=== PATIENT | female | born 1965 | race Caucasian/White ===

== ENCOUNTER → 2025-03-17 15:16 | Outpatient (REF) | payer OTHER, SELFPAY | LOC: RAD 15:16 | PROVIDERS: ATTENDING PHYSICIAN Family Medicine | DX: N95.0 Postmenopausal bleeding (principal) | CPT/HCPCS: 76830; 76856 ==

== ENCOUNTER 2025-08-11 19:45 | Inpatient (IN) | payer OTHER, SELFPAY ==
[2025-08-11 10:17] VITALS: BP 183/97
[2025-08-11 11:29] VITALS: BP 175/91
[2025-08-11 11:32] VITALS: BMI 22.7
[2025-08-11 11:44] LABS: Hematocrit 29.9 % (37.0-47.0); Hemoglobin 9.6 g/dL (12.0-16.0); Mean Corp Hgb Conc. 32.1 g/dL (33.0-37.0); Mean Corpuscular Volume 84.2 fL (81.0-99.0); Nucleated Red Blood Cells % 0 %; Platelet Count 419 10^3/uL (130-400); Red Cell Dist. Width 13.6 % (11.5-14.5)
--- NOTE | 2025-08-11 11:54 | ED.GENMED ---
History of Present Illness
<DEBORAH Campbell - Last Filed: 08/11/25 15:56>
General
Chief Complaint: Abdominal Pain
Source: patient
Exam Limitations: none
Time Seen by Provider: 08/11/25 11:20
Nursing documentation reviewed up to this point in time: agreed with
History of Present Illness
History of Present Illness:
Patient is a 60-year-old female who presents to the ER for evaluation. Patient is status post robotic partial hysterectomy on Thursday 4 days ago at [facility]. Since then she has developed increasing abdominal pain worse in the right upper
quadrant. She is mildly nauseous. She did move her bowels this morning. She denies any urinary frequency or urgency. Denies any fever or chills.
Past History
<DEBORAH Campbell - Last Filed: 08/11/25 15:56>
Past History
ED Past Medical History: GERD, HTN, Psychiatric (Depression) and Other (Chronic back pain)
ED Past Surgical History: Orthopedic
Social History
Tobacco: Non-smoker
Phy Exam
<DEBORAH Campbell - Last Filed: 08/11/25 15:56>
General Physical Exam
General Presentation: no apparent distress
General age: appears stated age
General Skin: warm and dry
General Habitus: normal
General Mental: alert
General Hydration: appears well hydrated
Gastrointestinal Exam
Gastrointestinal Exam: soft and other (+ Laparoscopic surgical sites intact with no drainage or redness; tender throughout )
Neurological Exam
Neurological Exam: alert and oriented x3
Course
<DEBORAH Campbell - Last Filed: 08/11/25 15:56>
Orders/Labs/Results
Orders:
Orders
08/11/25 11:33
Electrocardiogram (*1) Urgent
Reason for Study: Abdominal Pain
EKG- Treatment ONCE
08/11/25 11:34
Complete Blood Count/With Diff Urgent
Comprehensive Metabolic Panel Urgent
Lipase Urgent
08/11/25 12:00
CT Abd/pel W Iv And Oral Contr Urgent
Comment:
Reason For Exam: ruq pain s/p robotic hysterectomy
Iohexol [Omnipaque] See Protocol PO NOW STA
08/11/25 12:01
0.9% Sodium Chloride 1000 ml [Nss] 1,000 ml IV BOLUS
Morphine Sulfate 2 mg IV NOW STA
Ondansetron Injectable [Zofran] 4 mg IV NOW STA
08/11/25 16:12
US Abdomen Limited Urgent
Comment: GB, biliary tree ONLY
Reason For Exam: RUQ pain, abnormal CT
08/11/25 18:16
Piperacillin/Tazo 3.375 Gram [Zosyn] 3.375 gram in 50 ml IV NOW
08/11/25 18:18
Morphine Sulfate 4 mg IV NOW STA
08/11/25 19:28
Admit/Transfer Patient As Directed
Co-Sign Provider:
Level of Care: Inpatient admission
Assign to:: Medical/Surgical
Physician / Group: López Lovett
Diagnosis: cholecystitis
Reason for Hospitalization: cholecystitis
Expected length of stay greater than two midnights?: Yes
ELOS- Estimated Length of Stay in days: 2
I certify the patient meets the requirements for IP care: Yes
Code Status As Directed
Resuscitation Status: Full Code
08/11/25 19:34
PRN Pain Medication Management As Directed
May give lesser potent ordered pain med per pt: Yes
preference::
Protocol:: Medication orders for pain may be administered in a
manner that supports deferring to patient preference
when the pt is:
- Requesting an ordered lesser potent pain medication.
Least to most potent pain medications are defined
as: acetaminophen < NSAID < tramadol < opioids
(morphine, oxycodone, hydromorphone).
- Requesting a lesser dose of the same medication IF
ORDERED.
- Requesting a less intrusive route of administration
if both routes are prescribed by the provider (PO <
IV).
08/11/25 22:39
0.9% Sodium Chloride 1000 ml [Nss] 1,000 ml IV 125 mls/hr
HYDROmorphone [Dilaudid] 0.25 mg IV Q4HPRN PRN
HYDROmorphone [Dilaudid] 0.5 mg IV Q4HPRN PRN
Ondansetron Injectable [Zofran] 4 mg IV Q6HPRN PRN
08/11/25 22:39
Activity As Directed
Activity Level: As Tolerated
Pneumatic Compression Sleeves As Directed
Type: Knee high
Vital Signs As Directed
Frequency: Per unit guidelines
DX Deep Vein Thrombosis Video Routine
08/12/25 Breakfast
NPO
Allow oral meds: No
Allow clear liquids: No
Complete Blood Count/With Diff IN AM
Comprehensive Metabolic Panel IN AM
Abnormal Lab Results
08/11/25
11:34
WBC 12.5 H 10^3/uL
(4.8-10.8)
RBC 3.55 L 10^6/uL
(4.20-5.40)
Hgb 9.6 L g/dL
(12.0-16.0)
Hct 29.9 L %
(37.0-47.0)
MCHC 32.1 L g/dL
(33.0-37.0)
Plt Count 419 H 10^3/uL
(130-400)
Abs Immat Gran (auto) 0.1 H 10^3/uL
(0-0.05)
Absolute Neuts (auto) 9.8 H 10^3/uL
(1.4-6.5)
Immature Gran % 0.7 H %
(0-0.5)
Neutrophils % 77.9 H %
(42.2-75.2)
Lymphocytes % 16.0 L %
(20.5-51.1)
Chloride 108 H mmol/L
(98-107)
BUN 6 L mg/dl
(7-17)
Creatinine 0.5 L mg/dL
(0.6-1.0)
AST 13 L U/L
(14-36)
Total Protein 5.5 L g/dl
(6.3-8.2)
Albumin 3.3 L g/dl
(3.5-5.0)
08/11/25 11:34
08/11/25 11:34
Vital Signs
Initial and Last Documented VS:
Initial Vital Signs
Temp Pulse Resp BP Pulse Ox
98.2 F 59 20 183/97 100
08/11/25 10:17 08/11/25 10:17 08/11/25 10:17 08/11/25 10:17 08/11/25 10:17
Last Documented Vital Signs
Temp Pulse Resp BP Pulse Ox
98.2 F 84 20 171/83 100
08/11/25 10:17 08/11/25 18:17 08/11/25 10:17 08/11/25 18:17 08/11/25 11:56
<Shaun Carrasco PA-C - Last Filed: 08/11/25 22:40>
Orders/Labs/Results
Orders:
Orders
08/11/25 11:33
Electrocardiogram (*1) Urgent
Reason for Study: Abdominal Pain
EKG- Treatment ONCE
08/11/25 11:34
Complete Blood Count/With Diff Urgent
Comprehensive Metabolic Panel Urgent
Lipase Urgent
08/11/25 12:00
CT Abd/pel W Iv And Oral Contr Urgent
Comment:
Reason For Exam: ruq pain s/p robotic hysterectomy
Iohexol [Omnipaque] See Protocol PO NOW STA
08/11/25 12:01
0.9% Sodium Chloride 1000 ml [Nss] 1,000 ml IV BOLUS
Morphine Sulfate 2 mg IV NOW STA
Ondansetron Injectable [Zofran] 4 mg IV NOW STA
08/11/25 16:12
US Abdomen Limited Urgent
Comment: GB, biliary tree ONLY
Reason For Exam: RUQ pain, abnormal CT
08/11/25 18:16
Piperacillin/Tazo 3.375 Gram [Zosyn] 3.375 gram in 50 ml IV NOW
08/11/25 18:18
Morphine Sulfate 4 mg IV NOW STA
08/11/25 19:28
Admit/Transfer Patient As Directed
Co-Sign Provider:
Level of Care: Inpatient admission
Assign to:: Medical/Surgical
Physician / Group: López Lovett
Diagnosis: cholecystitis
Reason for Hospitalization: cholecystitis
Expected length of stay greater than two midnights?: Yes
ELOS- Estimated Length of Stay in days: 2
I certify the patient meets the requirements for IP care: Yes
Code Status As Directed
Resuscitation Status: Full Code
08/11/25 19:34
PRN Pain Medication Management As Directed
May give lesser potent ordered pain med per pt: Yes
preference::
Protocol:: Medication orders for pain may be administered in a
manner that supports deferring to patient preference
when the pt is:
- Requesting an ordered lesser potent pain medication.
Least to most potent pain medications are defined
as: acetaminophen < NSAID < tramadol < opioids
(morphine, oxycodone, hydromorphone).
- Requesting a lesser dose of the same medication IF
ORDERED.
- Requesting a less intrusive route of administration
if both routes are prescribed by the provider (PO <
IV).
08/11/25 22:39
0.9% Sodium Chloride 1000 ml [Nss] 1,000 ml IV 125 mls/hr
HYDROmorphone [Dilaudid] 0.25 mg IV Q4HPRN PRN
HYDROmorphone [Dilaudid] 0.5 mg IV Q4HPRN PRN
Ondansetron Injectable [Zofran] 4 mg IV Q6HPRN PRN
08/11/25 22:39
Activity As Directed
Activity Level: As Tolerated
Pneumatic Compression Sleeves As Directed
Type: Knee high
Vital Signs As Directed
Frequency: Per unit guidelines
DX Deep Vein Thrombosis Video Routine
08/12/25 Breakfast
NPO
Allow oral meds: No
Allow clear liquids: No
Complete Blood Count/With Diff IN AM
Comprehensive Metabolic Panel IN AM
Abnormal Lab Results
08/11/25
11:34
WBC 12.5 H 10^3/uL
(4.8-10.8)
RBC 3.55 L 10^6/uL
(4.20-5.40)
Hgb 9.6 L g/dL
(12.0-16.0)
Hct 29.9 L %
(37.0-47.0)
MCHC 32.1 L g/dL
(33.0-37.0)
Plt Count 419 H 10^3/uL
(130-400)
Abs Immat Gran (auto) 0.1 H 10^3/uL
(0-0.05)
Absolute Neuts (auto) 9.8 H 10^3/uL
(1.4-6.5)
Immature Gran % 0.7 H %
(0-0.5)
Neutrophils % 77.9 H %
(42.2-75.2)
Lymphocytes % 16.0 L %
(20.5-51.1)
Chloride 108 H mmol/L
(98-107)
BUN 6 L mg/dl
(7-17)
Creatinine 0.5 L mg/dL
(0.6-1.0)
AST 13 L U/L
(14-36)
Total Protein 5.5 L g/dl
(6.3-8.2)
Albumin 3.3 L g/dl
(3.5-5.0)
08/11/25 11:34
08/11/25 11:34
Vital Signs
Initial and Last Documented VS:
Initial Vital Signs
Temp Pulse Resp BP Pulse Ox
98.2 F 59 20 183/97 100
08/11/25 10:17 08/11/25 10:17 08/11/25 10:17 08/11/25 10:17 08/11/25 10:17
Last Documented Vital Signs
Temp Pulse Resp BP Pulse Ox
98.2 F 84 20 171/83 100
08/11/25 10:17 08/11/25 18:17 08/11/25 10:17 08/11/25 18:17 08/11/25 11:56
Katielt;Catracho Mejia DO - Last Filed: 08/11/25 18:34>
Orders/Labs/Results
Orders:
Orders
08/11/25 11:33
Electrocardiogram (*1) Urgent
Reason for Study: Abdominal Pain
EKG- Treatment ONCE
08/11/25 11:34
Complete Blood Count/With Diff Urgent
Comprehensive Metabolic Panel Urgent
Lipase Urgent
08/11/25 12:00
CT Abd/pel W Iv And Oral Contr Urgent
Comment:
Reason For Exam: ruq pain s/p robotic hysterectomy
Iohexol [Omnipaque] See Protocol PO NOW STA
08/11/25 12:01
0.9% Sodium Chloride 1000 ml [Nss] 1,000 ml IV BOLUS
Morphine Sulfate 2 mg IV NOW STA
Ondansetron Injectable [Zofran] 4 mg IV NOW STA
08/11/25 16:12
US Abdomen Limited Urgent
Comment: GB, biliary tree ONLY
Reason For Exam: RUQ pain, abnormal CT
08/11/25 18:16
Piperacillin/Tazo 3.375 Gram [Zosyn] 3.375 gram in 50 ml IV NOW
08/11/25 18:18
Morphine Sulfate 4 mg IV NOW STA
08/11/25 19:28
Admit/Transfer Patient As Directed
Co-Sign Provider:
Level of Care: Inpatient admission
Assign to:: Medical/Surgical
Physician / Group: López Lovett
Diagnosis: cholecystitis
Reason for Hospitalization: cholecystitis
Expected length of stay greater than two midnights?: Yes
ELOS- Estimated Length of Stay in days: 2
I certify the patient meets the requirements for IP care: Yes
Code Status As Directed
Resuscitation Status: Full Code
08/11/25 19:34
PRN Pain Medication Management As Directed
May give lesser potent ordered pain med per pt: Yes
preference::
Protocol:: Medication orders for pain may be administered in a
manner that supports deferring to patient preference
when the pt is:
- Requesting an ordered lesser potent pain medication.
Least to most potent pain medications are defined
as: acetaminophen < NSAID < tramadol < opioids
(morphine, oxycodone, hydromorphone).
- Requesting a lesser dose of the same medication IF
ORDERED.
- Requesting a less intrusive route of administration
if both routes are prescribed by the provider (PO <
IV).
08/11/25 22:39
0.9% Sodium Chloride 1000 ml [Nss] 1,000 ml IV 125 mls/hr
HYDROmorphone [Dilaudid] 0.25 mg IV Q4HPRN PRN
HYDROmorphone [Dilaudid] 0.5 mg IV Q4HPRN PRN
Ondansetron Injectable [Zofran] 4 mg IV Q6HPRN PRN
08/11/25 22:39
Activity As Directed
Activity Level: As Tolerated
Pneumatic Compression Sleeves As Directed
Type: Knee high
Vital Signs As Directed
Frequency: Per unit guidelines
DX Deep Vein Thrombosis Video Routine
08/12/25 Breakfast
NPO
Allow oral meds: No
Allow clear liquids: No
Complete Blood Count/With Diff IN AM
Comprehensive Metabolic Panel IN AM
Abnormal Lab Results
08/11/25
11:34
WBC 12.5 H 10^3/uL
(4.8-10.8)
RBC 3.55 L 10^6/uL
(4.20-5.40)
Hgb 9.6 L g/dL
(12.0-16.0)
Hct 29.9 L %
(37.0-47.0)
MCHC 32.1 L g/dL
(33.0-37.0)
Plt Count 419 H 10^3/uL
(130-400)
Abs Immat Gran (auto) 0.1 H 10^3/uL
(0-0.05)
Absolute Neuts (auto) 9.8 H 10^3/uL
(1.4-6.5)
Immature Gran % 0.7 H %
(0-0.5)
Neutrophils % 77.9 H %
(42.2-75.2)
Lymphocytes % 16.0 L %
(20.5-51.1)
Chloride 108 H mmol/L
(98-107)
BUN 6 L mg/dl
(7-17)
Creatinine 0.5 L mg/dL
(0.6-1.0)
AST 13 L U/L
(14-36)
Total Protein 5.5 L g/dl
(6.3-8.2)
Albumin 3.3 L g/dl
(3.5-5.0)
08/11/25 11:34
08/11/25 11:34
Vital Signs
Initial and Last Documented VS:
Initial Vital Signs
Temp Pulse Resp BP Pulse Ox
98.2 F 59 20 183/97 100
08/11/25 10:17 08/11/25 10:17 08/11/25 10:17 08/11/25 10:17 08/11/25 10:17
Last Documented Vital Signs
Temp Pulse Resp BP Pulse Ox
98.2 F 84 20 171/83 100
08/11/25 10:17 08/11/25 18:17 08/11/25 10:17 08/11/25 18:17 08/11/25 11:56
<DEBORAH Campbell - Last Filed: 08/11/25 15:56>
MDM/Problems Addressed
MDM/Problems Addressed:
pt s/p robotic partial hysterectomy c/o of RUQ pain , tender on exam. ct pending at this time. CAre of pt tx to [facility]
<DEBORAH Campbell - Last Filed: 08/11/25 15:56>
*Pulse Oximetry
SaO2: 100
Oxygen Mode of Delivery: Room air
<Shaun Carrasco PA-C - Last Filed: 08/11/25 22:40>
*Pulse Oximetry
Patient hypoxic: no
*Critical Care Note
Total Time (30-74mins, 75-104mins- exclusive of procedures): Not Applicable
<Shaun Carrasco PA-C - Last Filed: 08/11/25 22:40>
Update Note
Update Note:
Imaging c/w acute cholecystitis, will be admitted to surgical service
ED Attending Note
<DEBORAH Campbell - Last Filed: 08/11/25 15:56>
-
Portions of this chart may have been created with voice recognition software.� Occasional wrong word or��sound alike� substitutions may have occurred due to the inherent limitations of voice recognition software.
<Catracho Mejia DO - Last Filed: 08/11/25 18:34>
ED Attending Note
Patient seen and examined by attending physician: Yes
I performed the substantive portion of visit, reviewed & personally made and approve the management plan that is documented in note by myself or VINCENT.: Yes
ED Attending Note:
I evaluate patient at bedside. Mild leukocytosis noted. Ultrasound suggests acute calculous cholecystitis. Planning admission to the hospital.
Discharge Plan
Departure
Patient Disposition: Admit
Date of Disposition: 08/11/25
Time of Disposition: 18:19
Admit to: Med/Surg
Presentation/result/management discussed w/ accepting /DO: Gen Squires
Discharge Problem:
Acute cholecystitis
Interventions
Interventions:
*Risk Screen - Suicide Last Done: 08/11/25 10:17
*General Assessment Last Done: 08/11/25 10:17
*Neglect/Abuse Screening Last Done: 08/11/25 11:30
*ED COVID-19 Vaccine History Last Done: 08/11/25 11:30
*ED Influenza Vaccine History Last Done: 08/11/25 11:30
*Nursing Disposition Last Done: 08/11/25 22:32
HC-Nnbssv-[id number] Assessment Last Done: 08/11/25 11:30
Discharge Date and Time
Discharge Date/Time: 08/11/25 22:32
[2025-08-11] MEDS: OMNIPAQUE 50 ML PO (12:13)
[2025-08-11] MEDS: MORPHINE SULFATE 2 MG IV (12:13)
[2025-08-11] MEDS: ZOFRAN 4 MG IV (12:14)
[2025-08-11] MEDS: NSS 1000 IV ×2 (12:15→23:08)
[2025-08-11 12:22] LABS: ALT (SGPT) 11 U/L (0-35); AST (SGOT) 13 U/L (14-36); Albumin 3.3 g/dl (3.5-5.0); Alkaline Phosphatase 62 U/L (38-126); Blood Urea Nitrogen 6 mg/dl (7-17); Calcium 8.9 mg/dl (8.4-10.2); Carbon Dioxide 28 mmol/L (22-30); Chloride 108 mmol/L (98-107); Estimated Creatinine Clearance 92 ml/min; Glucose 93 mg/dl (70-99); Lipase 50 U/L (23-300); Potassium 3.8 mmol/L (3.5-5.1); Sodium 139 mmol/L (135-145); Total Protein 5.5 g/dl (6.3-8.2); eGFR > 60.00
[2025-08-11 18:17] VITALS: BP 171/83
[2025-08-11] MEDS: ZOSYN 50 IV ×2 (18:29→23:08)
[2025-08-11] MEDS: MORPHINE SULFATE 4 MG IV (18:30)
--- NOTE | 2025-08-11 21:03 | CON.GS ---
Consultation
-
Date/Time Consultation Performed: 08/11/2025
Performing Provider: López Lovett MD
Medical History
-
History of Present Illness:
Patient is a 60-year-old female with PMH of GERD, HTN, depression, low back pain, CLL (never required treatment, on observation, has received iron infusions for anemia) who presents 4 days after robotic CAITLIN/BSO at [place] by Dr. Medina with
worsening right sided abdominal pain. She says the surgery was for uterine bleeding. She was admitted for 1 day and discharged the following day. At home, she was doing well until she developed worsening abdominal pain that was different from her
incisional pain. She states the pain was on the right side. She denies any fevers or chills, chest pain or shortness of breath. She had a little nausea, no vomiting, but this has resolved. Her pain has improved since the pain medicine. She
denies a change in her bowel habits. She has been taking a bowel regimen to prevent constipation, but denies diarrhea or hematochezia. In the ED, her WBC was 12.5, T. bili 0.5, LFTs normal. A CT scan was done showing significant retroperitoneal
and intraperitoneal air, distended gallbladder with wall thickening and fluid, and mild thickening of the ascending and proximal transverse colon. An ultrasound was done showing gallbladder wall thickening of 3.5 mm with small amount of PCCF,
concerning for acute cholecystitis.
Past Medical History
Past Medical History: Other (As above)
Past Surgical History: Other (Left knee surgery, bilateral shoulder surgery, robotic CAITLIN/BSO 08/07/2025)
Social History
Tobacco: Other (Smoked 3/4 PPD x 10 years, quit 3-4 days ago)
Alcohol: None
Drug: None
Personal: Single
Living: Alone
Family History
Family History: Other (Denies family history of cancer except brain cancer in brother)
Allergies / Home Medications
Allergy/AdvReac Type Severity Reaction Status Date / Time
apple Allergy Unknown Unknown Verified 08/11/25 10:20
dog dander Allergy Unknown Unknown Verified 08/11/25 10:20
�Medication �Instructions �Recorded �Confirmed �Type
amlodipine 5 mg tablet (Norvasc) 5 mg PO DAILY 08/11/25 08/11/25 History
docusate sodium 100 mg capsule 100 mg PO BIDPRN PRN constipation 08/11/25 08/11/25 History
(Colace)
esomeprazole magnesium 40 mg 40 mg PO DAILY 08/11/25 08/11/25 History
capsule,delayed release (Nexium)
ibuprofen 200 mg tablet (Advil) 1,000 mg PO DAILYPRN PRN mild pain 08/11/25 08/11/25 History
venlafaxine 37.5 mg 37.5 mg PO HS 08/11/25 08/11/25 History
capsule,extended release 24 hr
(Effexor XR)
venlafaxine 75 mg capsule,extended 75 mg PO HS 08/11/25 08/11/25 History
release 24 hr (Effexor XR)
Review of Systems
-
A 10 point review of systems was completed, and was negative except as per HPI.
Physical Exam
Vital Signs
Temp Pulse Resp BP Pulse Ox
98.2 F 84 20 171/83 100
08/11/25 10:17 08/11/25 18:17 08/11/25 10:17 08/11/25 18:17 08/11/25 11:56
08/10/25 08/11/25 08/12/25
06:59 06:59 06:59
Actual Weight 63.7 kg
Body Mass Index (BMI) 22.7
Lab Results
08/11/25 11:34
08/11/25 11:34
WBC 12.5 10^3/uL (4.8-10.8) H 08/11/25 11:34
Hgb 9.6 g/dL (12.0-16.0) L 08/11/25 11:34
Hct 29.9 % (37.0-47.0) L 08/11/25 11:34
Plt Count 419 10^3/uL (130-400) H 08/11/25 11:34
Abs Immat Gran (auto) 0.1 10^3/uL (0-0.05) H 08/11/25 11:34
Neutrophils % 77.9 % (42.2-75.2) H 08/11/25 11:34
Physical Exam
General: Well Developed, Well Nourished and No Apparent Distress
HEENT: Normocephalic and Atraumatic
Respiratory: Non Labored Respirations
Cardiac: S1/S2
GI: Soft, Non Distended and Tender (Mildly to moderately tender in the bilateral lower quadrants as well as RUQ; negative Bronson sign; no rebound or guarding)
Skin: Warm, Dry and Other (Incisions well-approximated without erythema or drainage, covered in Dermabond; 5 incisions extending transversely across the mid abdomen)
Neuro: AO x 3
Assessment / Plan
-
60-year-old female with PMH of GERD, HTN, depression, low back pain, CLL (never required treatment, on observation, has received iron infusions for anemia) who presents 4 days after robotic CAITLIN/BSO at [place] by Dr. Medina with worsening right
sided abdominal pain. She says the surgery was for uterine bleeding. She was admitted for 1 day and discharged the following day. At home, she was doing well until she developed worsening abdominal pain that was different from her incisional
pain. She states the pain was on the right side. She denies any fevers or chills, chest pain or shortness of breath. She had a little nausea, no vomiting, but this has resolved. Her pain has improved since the pain medicine. She denies a change
in her bowel habits. She has been taking a bowel regimen to prevent constipation, but denies diarrhea or hematochezia. In the ED, her WBC was 12.5, T. bili 0.5, LFTs normal. A CT scan was done showing significant retroperitoneal and
intraperitoneal air, distended gallbladder with wall thickening and fluid, and mild thickening of the ascending and proximal transverse colon. An ultrasound was done showing gallbladder wall thickening of 3.5 mm with small amount of PCCF,
concerning for acute cholecystitis.
AFVSS
� RUQ abdominal pain and imaging concerning for acute cholecystitis
�Abdominal exam not reliable as she has an incision in the RUQ; negative Bronson sign; clinical story not extremely clear for cholecystitis
�Due to the risks involved with of repeat abdominal surgery 4 days from recent surgery, would want to confirm cholecystitis with HIDA; explained the treatment options for cholecystitis in her situation, including antibiotics, percutaneous drainage
and cholecystectomy and the risks involved with each
�Discussed with on-call inspector raw quartz onc at [place], Dr. Perez, who was not the operating surgeon but was familiar with the case; she explained that there was palpable tumor on cervical exam and the case was difficult due to the tumor burden within the
pelvis, but was otherwise uncomplicated without significant adhesiolysis or elevated concern for bowel injury; she agreed with further workup of the gallbladder; patient will likely need adjuvant chemo so cholecystectomy, if feasible, would be
advisable as perc arlene may delay chemo; if the HIDA is negative, would consider transfer back to [place] for further workup and care
�Thickening of the ascending and proximal transverse colon concerning for colitis
�Low suspicion for colitis or bowel injury at this point as she denies any GI symptoms; will continue supportive care and monitor
�Keep n.p.o. with IVF at 125
�IV Zosyn
� Will order HIDA for the a.m.
� Pain control with Tylenol, Toradol, Dilaudid as needed
[2025-08-11 23:00] VITALS: BP 152/87
[2025-08-11] MEDS: TYLENOL 1000 MG PO (23:08)
[2025-08-11] MEDS: EFFEXOR XR 37.5 MG PO (23:48)
[2025-08-11] MEDS: EFFEXOR XR 75 MG PO (23:48)
[2025-08-12] MEDS: TYLENOL PO (05:20)
[2025-08-12 05:22] VITALS: BMI 22.2
[2025-08-12] MEDS: ZOSYN 50 IV ×4 (05:30→23:59)
--- NOTE | 2025-08-12 06:21 | PTCARENOTE ---
Patient arrived on unit @2239 via stretcher from ED, ambulate to bed with standby assist. Patient AAOX3 c/o 4/10 pain to abdomen which, scheduled med given as ordered. Skin assessment completed, oriented to unit, call frost within reach.
[2025-08-12 07:00] VITALS: BP 153/81
[2025-08-12 08:35] LABS: Hematocrit 27.0 % (37.0-47.0); Hemoglobin 8.8 g/dL (12.0-16.0); Mean Corp Hgb Conc. 32.6 g/dL (33.0-37.0); Mean Corpuscular Volume 84.4 fL (81.0-99.0); Nucleated Red Blood Cells % 0 %; Platelet Count 365 10^3/uL (130-400); Red Cell Dist. Width 13.6 % (11.5-14.5)
[2025-08-12 08:44] LABS: INR 1.03; PT 13.8 Sec (11.4-14.6)
[2025-08-12 08:45] LABS: APTT 30.1 Sec (23.4-35.0)
[2025-08-12 08:59] LABS: ALT (SGPT) < 10 U/L (0-35); AST (SGOT) 11 U/L (14-36); Albumin 3.1 g/dl (3.5-5.0); Alkaline Phosphatase 65 U/L (38-126); Blood Urea Nitrogen 4 mg/dl (7-17); Calcium 8.8 mg/dl (8.4-10.2); Carbon Dioxide 28 mmol/L (22-30); Chloride 109 mmol/L (98-107); Estimated Creatinine Clearance 92 ml/min; Glucose 89 mg/dl (70-99); Potassium 3.7 mmol/L (3.5-5.1); Sodium 139 mmol/L (135-145); Total Protein 5.2 g/dl (6.3-8.2); eGFR > 60.00
[2025-08-12] MEDS: MORPHINE SULFATE 2 MG IV (11:05)
--- NOTE | 2025-08-12 11:34 | CM ---
Initial Assessment Completed by OMID Nava.
Patient is off the floor, but [id number] who assist watching over the patient answered some questions.
Patient lives in a house with 1st floor set up, unsure how many steps to enter. Patient has a hospital bed and no other equipment. Patient drives and is otherwise independent.
PCP: Jody Pate
Pharmacy: [facility]?
Patient has a hysterectomy about a week ago and now here for concerning for acute cholecystitis. Appears that she will have transport when ready.
PLAN: Ancipitate Home No Needs.
[2025-08-12] MEDS: NSS 1000 IV ×2 (12:37→23:59)
[2025-08-12] MEDS: NORVASC 5 MG PO (12:57)
[2025-08-12] MEDS: TYLENOL 1000 MG PO ×3 (12:58→23:59)
[2025-08-12] MEDS: PROTONIX 40 MG PO (12:58)
--- NOTE | 2025-08-12 13:00 | W.PN.CRS1 ---
Addendum entered and electronically signed by López Lovett MD 08/12/25 15:18:
Discussed with Dr. Khan; will transfer patient to his service as acute cholecystitis has been ruled out and no active general surgery concerns; will hopefully advance diet tomorrow and DC on empiric oral antibiotics if continues to improve
Original Note:
Today's Communication / Plan
-
As below
Assessment/Plan
-
60-year-old female with PMH of GERD, HTN, depression, low back pain, CLL (never required treatment, on observation, has received iron infusions for anemia) who presents 4 days after robotic CAITLIN/BSO at [place] by Dr. Medina with worsening right
sided abdominal pain. She says the surgery was for uterine bleeding. She was admitted for 1 day and discharged the following day. At home, she was doing well until she developed worsening abdominal pain that was different from her incisional
pain. She states the pain was on the right side. She denies any fevers or chills, chest pain or shortness of breath. She had a little nausea, no vomiting, but this has resolved. Her pain has improved since the pain medicine. She denies a change
in her bowel habits. She has been taking a bowel regimen to prevent constipation, but denies diarrhea or hematochezia. In the ED, her WBC was 12.5, T. bili 0.5, LFTs normal. A CT scan was done showing significant retroperitoneal and
intraperitoneal air, distended gallbladder with wall thickening and fluid, and mild thickening of the ascending and proximal transverse colon. An ultrasound was done showing gallbladder wall thickening of 3.5 mm with small amount of PCCF,
concerning for acute cholecystitis.
AFVSS
WBC 8.3 from 12.5, Hb 8.8 from 9.6, CR 0.6
� RUQ abdominal pain and imaging concerning for acute cholecystitis; on exam, pain appears more prominent in the lower quadrants;
�HIDA negative, which rules out cholecystitis
-Will consult WELFARE VISITOR to rule out a postoperative complication
-Discussed with Dr. Perez at [facility] last night, if care exceeds our abilities here, they are happy to accept the transfer
�Patient is improving with empiric antibiotics
�Thickening of the ascending and proximal transverse colon concerning for colitis
�Low suspicion for colitis or bowel injury at this point as she denies any GI symptoms; will continue supportive care and monitor
� Advance to clears, decrease IVF to 75
� Continue IV Zosyn
� Pain control with Tylenol, Toradol, Dilaudid as needed
Subjective Data
Subjective Data
Date of Service: August 12, 2025
No overnight events. Her pain has improved since yesterday. She denies any N/V. Currently NPO.
Objective Data
-
Vital Signs
Temp Pulse Resp BP Pulse Ox
98.2 F 65 18 153/81 97
08/12/25 07:00 08/12/25 07:00 08/12/25 07:00 08/12/25 07:00 08/12/25 07:00
Intake & Output
08/11/25 08/12/25 08/13/25
06:59 06:59 06:59
Intake Total 100 / 100
Balance 100 / 100
Intake:
IV piggybacks 100 / 100
Other:
How many times incontinent 1
MODERATE amount urine
Lab Results
08/12/25 08:16
08/12/25 08:16
Physical Exam
-
General: No Acute Distress and AOx3
HEENT: Grossly Normal
Abdomen: Soft, Non Distended, Tender (Mildly tender in the lower quadrants, minimally tender in the RUQ, negative Bronson's), No Guarding and No Rebound
Skin: Warm, Dry and Other (Incisions well-approximated without erythema or drainage)
Wound: No Signs of Infection and No Skin Erythema
[2025-08-12 13:23] VITALS: BMI 22.2
--- NOTE | 2025-08-12 13:41 | CON.MD ---
Consultation - Medical
-
Rule out cuff dehiscence
CC / HPI / ROS
-
Chief Complaint:
Abdominal pain
History of Present Illness:
Claire Pack is a 60 yo F w/PMHx of HTN, depression, GERD, and CLL who now presents POD#5 from [facility] and BSO at [place] by Dr. Medina, with worsening right sided abdominal pain. RA-TLH and BSO was for vaginal bleeding and pelvic pain. Patient
was discharged home from [place] on postop day 1. She states that she was doing well until she developed worsening abdominal pain that was different than her incisional pain and located on her right side. Patient denies fevers, chills, chest
pain, and shortness of breath. She currently denies nausea and vomiting. Pain had improved significantly with pain medication.
CT scan was done showing significant retroperitoneal and intraperitoneal air, distended gallbladder with wall thickening and fluid and mild thickening of the ascending and proximal transverse colon. A gallbladder ultrasound was performed which
showed thickening of 3.5 mm concerning for acute cholecystitis. HIDA scan performed today which was negative.
Patient denies vaginal bleeding, abnormal vaginal discharge and states she has not put anything in her vagina. She has follow-up with her surgeon in 2 weeks to discuss pathology results.
Review of Systems:
Denies vaginal bleeding
Denies abnormal vaginal discharge.
Denies fevers/chills
Denies chest pain/shortness of breath
Denies nausea and vomiting
Current/Past Med/Surg History
Operations / Procedures
Past Surgical History: Gynecological ([facility], BSO on 08/07/25)
Medications / Supplements
Medication / Herbal Supplements: No
�Medication �Instructions �Recorded
amlodipine 5 mg tablet (Norvasc) 5 mg PO DAILY Blood Pressure 08/11/25
docusate sodium 100 mg capsule 100 mg PO BIDPRN PRN constipation 08/11/25
(Colace)
esomeprazole magnesium 40 mg 40 mg PO DAILY Gastrointestinal 08/11/25
capsule,delayed release (Nexium) Issue
ibuprofen 200 mg tablet (Advil) 1,000 mg PO DAILYPRN PRN mild pain 08/11/25
venlafaxine 150 mg 150 mg PO HS Mental Health/Anxiety 08/11/25
capsule,extended release 24 hr
(Effexor XR)
venlafaxine 37.5 mg 37.5 mg PO HS Mental Health/Anxiety 08/11/25
capsule,extended release 24 hr
(Effexor XR)
Allergies
Allergies: Yes
Allergy/AdvReac Type Severity Reaction Status Date / Time
apple Allergy Unknown Unknown Verified 08/11/25 10:20
dog dander Allergy Unknown Unknown Verified 08/11/25 10:20
Vital Signs / Physical Exam
Vital Signs
Vital Signs
Temp Pulse Resp BP Pulse Ox
98.2 F 68 18 148/69 97
08/12/25 07:00 08/12/25 12:57 08/12/25 07:00 08/12/25 12:57 08/12/25 07:00
Physical Exam
Constitutional: No Acute Distress and Comfortable
Pulmonary: Non Labored
Gastrointestinal: Soft, Non Tender, Non Distended and Other (x5 robotic incisions are clean, dry and intact)
Genito-Urinary: Other (Speculum exam reveals intact vaginal cuff without evidence of hematoma, seroma, or dehiscence)
Skin: Warm and Dry
Neurological: AO x 3
Assessemnt/Plan
-
Claire Pack is a 60-year-old female postop day 5 from a robotic assisted TLH and BSO for abnormal uterine bleeding to rule out malignancy presenting with abdominal pain.
Plan:
-Care per primary team
-No evidence of cuff dehiscence.
-Intra peritoneal and retroperitoneal air likely secondary from recent postoperative state.
-Recommend patient follow-up with primary surgeon postoperatively.
-Plan to follow peripherally. Please reach out if patient's condition changes.
Vital Signs / Labs
-
Vital Signs and Labs:
Temp Pulse Resp BP Pulse Ox
98.2 F 68 18 148/69 97
08/12/25 07:00 08/12/25 12:57 08/12/25 07:00 08/12/25 12:57 08/12/25 07:00
08/12/25 08:16
08/12/25 08:16
08/12/25
08:16
RBC 3.20 L
Hgb 8.8 L
Hct 27.0 L
MCHC 32.6 L
Abs Immat Gran (auto) 0.1 H
Immature Gran % 0.6 H
Lymphocytes % 17.4 L
Chloride 109 H
BUN 4 L
AST 11 L
Total Protein 5.2 L
Albumin 3.1 L
--- NOTE | 2025-08-12 13:46 | W.PN.HOSP.TC ---
Today's Communication/Plan
-
Pain medication adjusted, prefer oral pain medication before giving IV
Advance clear liquid to full liquid if no concern from DESIGN TECHNOLOGY TEACHER
await acrobatic dancer eval
switching to hospitalist service
Assessment / Plan
Assessment / Plan
CT a/p
Status post robotic hysterectomy.
There is significant retroperitoneal air, which extends superiorly within the abdominal and pelvic restrepo and into the right lower chest wall. Small amount of air extending superiorly within the anterior midline mediastinum.
There is also free intraperitoneal air.
These regions of extraperitoneal and intraperitoneal air are likely from recent robotic hysterectomy.
Minimal right pleural effusion.
Small amount of free fluid off the margin of the liver. No mention above, there is also a small amount of fluid in the paracolic gutters bilaterally.
Gallbladder is distended. Rim of decreased density surrounding the enhancing gallbladder lumen compatible with gallbladder wall thickening and/or pericholecystic edema. Please correlate with any clinical signs or symptoms that suggest acute
cholecystitis.
Mild thickening of the wall the right colon and the right side of the transverse colon, findings suggestive of colitis. No evidence for bowel obstruction.
HIDA scan
1. Patent cystic duct, with the gallbladder seen only after morphine administration.
2. Patent common bile duct.
1. Right flank pain
Reported air/subcutaneous emphysema
s/p robotic hysterectomy
Ruled out cholecystitis
- Suspected due to extensive subcutaneous emphysema post robotic CAITLIN
- Fine crepitus on skin exam
- CTAP showed free peritoneal air, general surgeon ruled out any concern for bowel perforation
- No other signs suggestive of acute abdomen. No nausea/vomiting. No diarrhea
- Continue pain control
- Surgery has discussed with primary DESIGN TECHNOLOGY TEACHER at [facility] and willing to accept if help needed. manager call ob-circus rider consulted for opinion as well.
- Currently on clear liquid diet will advance post DESIGN TECHNOLOGY TEACHER evaluation
- Maintain on empiric Zosyn for now.
2. Essential hypertension
- Maintain on home dose of Norvasc
3. Gastroesophageal reflux disease
- Maintained on esomeprazole
4. Depression / anxiety
- Maintained on Effexor
Full code
Lovenox
Care plan discussed with general surgeon
I will accept patient on my service, change of attending orders placed.
Total time spent : 56 mins
I personally saw and examined the patient.
I have reviewed all diagnostic interpretations and treatment plans as written.
Time includes patient management by me, time spent at the patients bedside, time to review lab and imaging results, discussing patient care, documentation in the medical record, and time spent with the family or caregiver and discussing care plan
with RN/Consultants.
Anticipated Discharge: 24 - 48 hours
Subjective/Interval History
-
Date of Service: August 12, 2025
Patient resting comfortably in bed
Right flank pain no nausea vomiting diarrhea
Objective Data
-
Labs:
Laboratory Results
08/12/25
08:16
WBC 8.3
Hgb 8.8 L
Hct 27.0 L
Plt Count 365
PT 13.8
INR 1.03
APTT 30.1
Sodium 139
Potassium 3.7
Chloride 109 H
Carbon Dioxide 28
BUN 4 L
Creatinine 0.6
Glucose 89
Calcium 8.8
Total Bilirubin 1.3
AST 11 L
ALT < 10
Alkaline Phosphatase 65
Vital Signs:
Vital Signs
Temp Pulse Resp BP Pulse Ox
98.2 F 68 18 148/69 97
08/12/25 07:00 08/12/25 12:57 08/12/25 07:00 08/12/25 12:57 08/12/25 07:00
I&O
08/11/25 08/12/25 08/13/25
06:59 06:59 06:59
Intake Total 100 / 100
Balance 100 / 100
Review of Systems
-
Respiratory: Reports No Symptoms
Cardiac: Reports No Symptoms
Abdomen/GI: Reports Abdominal Pain; Denies Nausea, Vomiting or Diarrhea
Physical Exam
-
General: Negative Appears in Distress
HEENT: Negative Oxygen
GI: Soft, Tender (minimal on right flank) and Other (Soft tissue crepitus on exam, normal bowel sounds)
Neuro: Awake, Alert, Oriented and No Motor Deficits
--- NOTE | 2025-08-12 14:00 | PTCARENOTE ---
Order for morphine obtained while pt at HIDA scan. This RN ran down to administer as no RN in radiology at that time. When pt returned to floor IV fluids running. CLD ordered. POC ongoing.
[2025-08-12 15:00] VITALS: BP 140/77
[2025-08-12] MEDS: LOVENOX 40 MG SC (17:41)
[2025-08-12] MEDS: ROXICODONE 5 MG PO (17:49)
[2025-08-12] MEDS: COLACE 100 MG PO (17:49)
[2025-08-12 18:18] LABS: Hepatitis C Antibody Negative (Negative)
[2025-08-12] MEDS: EFFEXOR XR 75 MG PO (22:06)
[2025-08-12] MEDS: EFFEXOR XR 37.5 MG PO (22:06)
[2025-08-12 23:05] VITALS: BP 147/82
[2025-08-13] MEDS: TYLENOL 1000 MG PO ×2 (06:12→12:04)
[2025-08-13] MEDS: ZOSYN 50 IV ×2 (06:12→11:40)
[2025-08-13 07:27] LABS: Hematocrit 26.3 % (37.0-47.0); Hemoglobin 8.9 g/dL (12.0-16.0); Mean Corp Hgb Conc. 33.8 g/dL (33.0-37.0); Mean Corpuscular Volume 84.8 fL (81.0-99.0); Platelet Count 361 10^3/uL (130-400); Red Cell Dist. Width 13.2 % (11.5-14.5)
[2025-08-13 07:40] VITALS: BP 156/81
[2025-08-13 08:07] LABS: Blood Urea Nitrogen 4 mg/dl (7-17); Calcium 8.5 mg/dl (8.4-10.2); Carbon Dioxide 28 mmol/L (22-30); Chloride 106 mmol/L (98-107); Estimated Creatinine Clearance 92 ml/min; Glucose 80 mg/dl (70-99); Potassium 3.5 mmol/L (3.5-5.1); Sodium 138 mmol/L (135-145); eGFR > 60.00
[2025-08-13 09:37] LABS: ALT (SGPT) < 10 U/L (0-35); AST (SGOT) 11 U/L (14-36); Albumin 3.0 g/dl (3.5-5.0); Alkaline Phosphatase 64 U/L (38-126); Total Protein 5.2 g/dl (6.3-8.2)
[2025-08-13] MEDS: NORVASC 5 MG PO (09:50)
[2025-08-13] MEDS: PROTONIX 40 MG PO (09:51)
[2025-08-13] MEDS: NSS IV (09:58)
--- NOTE | 2025-08-13 10:48 | W.PN.GS2 ---
Addendum entered and electronically signed by López Lovett MD 08/13/25 18:49:
he RESOURCE COORDINATOR's note was reviewed and I agree with the note. Patient was not personally seen as she was discharged before I was available. Recommend follow-up with primary coremaker bench onc at [place] in the next 1-2 weeks
Original Note:
Today's Communication / Plan
-
PO challenge
Assessment / Plan
-
60 yo female s/p robotic CAITLIN/BSO 08/07/[address] Medina at [place] presenting with right sided pain CT scan was done showing significant retroperitoneal and intraperitoneal air, distended gallbladder with wall thickening and fluid, and mild
thickening of the ascending and proximal transverse colon. An ultrasound was done showing gallbladder wall thickening of 3.5 mm with small amount of PCCF, concerning for acute cholecystitis.
08/12/25 HIDA negative (filled s/p morphine)
No leukocytosis. LFT's WNL
Tolerating CLD
Appreciate DONOR RELATIONS OFFICER eval, no cuff dehiscence noted on their exam
Plan:
Advance to regular diet
Empiric abx
Follow for continued improvement in pain
OOB/Ambulate
OP f/u with primary coremaker bench
Dispo planning
Subjective Data
-
Date of Service: August 13, 2025
Pt seen and examined at bedside. Denies n/v. Sensation of generalized abdominal fullness. Passing flatus.
Objective Data
-
Intake and Output
08/12/25 08/13/25 08/14/25
06:59 06:59 06:59
Intake Total 100 / 100
Balance 100 / 100
Intake:
IV piggybacks 100 / 100
Other:
How many times incontinent 1 2
MODERATE amount urine
Vital Signs
Temp Pulse Resp BP Pulse Ox
98.4 F 67 18 156/81 98
08/13/25 07:40 08/13/25 09:50 08/13/25 07:40 08/13/25 09:50 08/13/25 07:40
Lab Results
08/13/25 06:52
08/13/25 06:52
Calcium 8.5 mg/dl (8.4-10.2) 08/13/25 06:52
Total Bilirubin 1.0 mg/dl (0.2-1.3) 08/13/25 06:52
Direct Bilirubin 0.3 mg/dl (0.0-0.4) 08/13/25 06:52
AST 11 U/L (14-36) L 08/13/25 06:52
ALT < 10 U/L (0-35) 08/13/25 06:52
Alkaline Phosphatase 64 U/L (38-126) 08/13/25 06:52
Total Protein 5.2 g/dl (6.3-8.2) L 08/13/25 06:52
Albumin 3.0 g/dl (3.5-5.0) L 08/13/25 06:52
Physical Exam
-
NAD
ABD soft, crepitus throughout, tender to right abdomen RUQ>RLQ
Incisions without erythema, well approximated
--- NOTE | 2025-08-13 11:29 | W.DCSUMMARY ---
Discharge Summary
Discharge Data
Date of Admission: 08/11/25
Date of Discharge: 08/13/25
-
Pending Results: No
Hospital Course
Discharging Physician : Dr Kenyon Khan
Disposition : To home
Primary care physician :
Principal Discharge diagnosis :
Right flank pain
Extensive subcutaneous emphysema
Extensive retro/intraperitoneal air collection
Chronic Discharge diagnosis :
Essential hypertension
Gastroesophageal reflux disease
Depression/anxiety
Physical examination:
HEENT: moist mucus membrane
Lung : clear
Heart : Whitney rate/rhythm, no murmur
Abd: Normal bowel sounds. Intake laparoscopic scar without any dehiscence. Minimal crepitus on palpitation mainly in the right side
Neuro: No motor or sensory deficits, bilateral symetric DTR
Ext: No cyanosis, Clubbing, edema
Hospital Course :
Patient is a 60-year-old female who has undergone a recent robotic hysterectomy at [facility] came to ER with new onset of right flank pain. Patient had some associated nausea without vomiting. No fever or chills. In ER CT scan
was done which showed significant retroperitoneal and intraperitoneal air distended gallbladder with possible wall thickening and surrounding fluid questioning acute cholangitis. General surgery was involved in care and admitted the patient. Based
on clinical examination there was low concern for bowel perforation. Intraperitoneal and subcutaneous air was felt to be related to postoperative findings post robotic hysterectomy. Patient was started on empiric antibiotic for possible
cholecystitis and a follow-up HIDA scan was done. HIDA scan showed patent ducts without other significant findings. Surgery deemed patient cholecystitis to be less likely explanation for patient right flank pain. STEM FRAZER was involved in care who
did not see any gynecological surgical emergency. Patient findings were likely postoperative in nature from extensive subcutaneous emphysema. General surgery recommended for patient to finish her course of empiric antibiotic. Patient to follow-up
with primary surgeon in office in 2 weeks.
Important imaging findings :
None
Procedure findings :
None
Discharge Plan
-
Patient Disposition: Home (Routine Discharge)
Discharge Diagnosis/Procedures: Right flank pain, Subcutaneous emphysema post robotic hysterotomy
Condition: Fair
Diet: Regular
Activity: As tolerated
Driving Restrictions: As prior to admission
Bathing Restrictions: OK to Shower
Activity Restrictions/Additional Instructions:
Please follow-up with primary obstetric/gynecological surgeon from [facility] as planned.
Referrals:
Jody Pate MD [Family Provider, Family Practice] - in one week
López Lovett MD [Active, ColoRectal] - in two to four weeks
Referral Note: to discuss colonoscopy
Prescriptions:
New
oxycodone 5 mg tablet
5 mg PO Q8H PRN (Reason: pain) Qty: 10 0RF
cefdinir 300 mg capsule
300 mg PO BID 7 Days Qty: 14 0RF
metronidazole 500 mg tablet
500 mg PO Q8H 7 Days Qty: 21 0RF
Continued
venlafaxine [Effexor XR] 37.5 mg Capsule,Extended Release 24hr
37.5 mg PO HS
amlodipine [Norvasc] 5 mg Tablet
5 mg PO DAILY
esomeprazole magnesium [Nexium] 40 mg Capsule,Delayed Release(Dr/Ec)
40 mg PO DAILY
ibuprofen [Advil] 200 mg Tablet
1,000 mg PO DAILYPRN PRN (Reason: mild pain)
docusate sodium [Colace] 100 mg Capsule
100 mg PO BIDPRN PRN (Reason: constipation)
Changed
venlafaxine [Effexor XR] 150 mg Capsule,Extended Release 24hr
75 mg PO HS Qty: 0 0RF
Discharge Date and Time
Print Language: BR[place] ISLAND[place]
[2025-08-13 13:43] VITALS: BP 143/78
[2025-08-13] MEDS: ROXICODONE 5 MG PO (13:52)
== END 2025-08-13 14:46 | disposition home or self-care (01) | DRG 200 ==
LOC: 3 WEST ACU 19:45
PROVIDERS: Nurse Practitioner; Nurse Practitioner Gerontology; ADMITTING PHYSICIAN Surgery; ATTENDING PHYSICIAN Hospitalist; CONSULT PHYSICIAN Obstetrics & Gynecology; EMERGENCY PHYSICIAN Emergency Medicine; FAMILY PHYSICIAN Family Medicine
DX: T79.7XXA Traumatic subcutaneous emphysema, initial encounter (principal); K81.0 Acute cholecystitis; Z87.891 Personal history of nicotine dependence; I10 Essential (primary) hypertension; K21.9 Gastro-esophageal reflux disease without esophagitis; F32.A Depression, unspecified; F41.9 Anxiety disorder, unspecified; Z79.899 Other long term (current) drug therapy; Z85.6 Personal history of leukemia; Z90.711 Acquired absence of uterus with remaining cervical stump; Y83.8 Other surgical procedures as the cause of abnormal reaction of the patient, or of later complication, without mention of misadventure at the time of the procedure
CPT/HCPCS: 74177; 76705; 78226; 80053; 82248; 83690; 85025; 85027; 85610; 85730; 86803; 93005; 96361; 96365; 96375; 96376; 99285; A9537; Q9967

== ENCOUNTER 2025-09-07 22:17 | Inpatient (IN) | payer OTHER, SELFPAY ==
[2025-09-07] VITALS (11 sets, daily range): BP systolic 127–176; BP diastolic 65–111; BMI 22.9; BMI 22.3
[2025-09-07 17:02] LABS: Hematocrit 31.5 % (37.0-47.0); Hemoglobin 9.9 g/dL (12.0-16.0); Mean Corp Hgb Conc. 31.4 g/dL (33.0-37.0); Mean Corpuscular Volume 82.7 fL (81.0-99.0); Nucleated Red Blood Cells % 0 %; Platelet Count 388 10^3/uL (130-400); Red Cell Dist. Width 13.0 % (11.5-14.5)
--- NOTE | 2025-09-07 17:03 | ED.GENMED ---
History of Present Illness
General
Chief Complaint: Abdominal Pain
Source: patient, records, previous radiology exam and previous hospital records
Exam Limitations: none
Time Seen by Provider: 09/07/25 16:51
Nursing documentation reviewed up to this point in time: agreed with
History of Present Illness
History of Present Illness:
60-year-old female left lower abdominal pain onset few days ago, she status post gynecologic surgery at [facility] about a month ago for endometrial cancer uterus and ovaries were removed she had a follow-up admission here with a thought she maybe had
gallbladder disease apparently was ruled out per my review of the medical records with a HIDA scan, she had a port placed recently due to start chemo in the coming days no fevers no vomiting does have some burning with urination
Past History
Past History
ED Past Medical History: Cancer, GERD, HTN, Psychiatric (Depression) and Other (Chronic back pain)
ED Past Surgical History: Gynecological and Orthopedic
Social History
Tobacco: Non-smoker
Alcohol: None
Drug: None
Personal:
Living: with family
Review of Systems
Review of Systems
All Other Systems: Not applicable
Constitutional: Denies fever or fatigue
EENT: Reports no symptoms
Respiratory: Reports no symptoms
Cardiac: Reports no symptoms
ABD/GI: Reports abdominal pain; Denies nausea, diarrhea or black stools
: Reports no symptoms
Musculoskeletal: Reports no symptoms
Skin: Reports no symptoms
Neurological: Reports no symptoms
Phy Exam
Physical Exam
Physical Exam:
Physical Exam
General: 60 female nontoxic looks uncomfortable due to pain temperature no
Neck: No jaundice
Heart: s1/s2 regular rate and rhythm, no murmur. equal radial pulses.
Lungs: no acute respiratory distress. clear bilaterally
Abdomen: Tender in the left lower abdomen no upper abdominal
Neuro: alert and oriented. no focal neurological deficits
Skin: no rash
Psychiatric: well kept. interactive and cooperative
Extremities: no edema.
Course
Orders/Labs/Results
Orders:
Orders
09/07/25 16:55
Complete Blood Count/With Diff Urgent
Comprehensive Metabolic Panel Urgent
Lipase Urgent
09/07/25 17:00
CT Abd/pelvis W Iv Cont Urgent
Comment:
Reason For Exam: pain llq pain
Bladder Scan- Treatment ONCE
09/07/25 17:01
HYDROmorphone [Dilaudid] 1 mg IV NOW STA
09/07/25 17:23
Urinalysis Reflex To Culture Urgent
Date Specimen was Collected: 09/07/25
Time Specimen was Collected: 17:10
09/07/25 17:43
EKG [Electrocardiogram (*1)] Urgent
Reason for Study: Abdominal Pain
EKG- Treatment ONCE
09/07/25 18:38
HYDROmorphone [Dilaudid] 1 mg IV NOW STA
09/07/25 20:17
HYDROmorphone [Dilaudid] 1 mg IV NOW STA
Abnormal Lab Results
09/07/25 09/07/25
16:55 17:23
WBC 14.3 H 10^3/uL
(4.8-10.8)
RBC 3.81 L 10^6/uL
(4.20-5.40)
Hgb 9.9 L g/dL
(12.0-16.0)
Hct 31.5 L %
(37.0-47.0)
MCH 26.0 L pg
(27.0-31.0)
MCHC 31.4 L g/dL
(33.0-37.0)
Abs Immat Gran (auto) 0.1 H 10^3/uL
(0-0.05)
Absolute Neuts (auto) 12.0 H 10^3/uL
(1.4-6.5)
Absolute Monos (auto) 0.8 H 10^3/uL
(0.1-0.6)
Immature Gran % 0.6 H %
(0-0.5)
Neutrophils % 83.6 H %
(42.2-75.2)
Lymphocytes % 8.9 L %
(20.5-51.1)
Total Bilirubin 1.7 H mg/dl
(0.2-1.3)
Urine Ketones 2+ A
(Negative)
09/07/25 16:55
09/07/25 16:55
Vital Signs
Initial and Last Documented VS:
Initial Vital Signs
BP
155/111
09/07/25 16:41
Last Documented Vital Signs
Temp Pulse Resp BP Pulse Ox
99.6 F 149 17 131/110 94
09/07/25 19:15 09/07/25 19:16 09/07/25 19:16 09/07/25 19:16 09/07/25 19:16
MDM/Problems Addressed
Differential Diagnosis Includes:
Postop abscess UTI postop retention pain due to cancer other
MDM/Problems Addressed:
Pain
Chronic conditions affecting care:
Endometrial cancer status post
Chronic conditions affecting care: Previous abdomnial surgery and Cancer
Acute Exacerbation and/or Progression of Chronic Illness: Previous abdomnial surgery and Cancer
*Radiology
Radiology exam reviewed: radiology read reviewed
*Pulse Oximetry
SaO2: 98
Oxygen Mode of Delivery: Room air
Patient hypoxic: no
*Critical Care Note
Total Time (30-74mins, 75-104mins- exclusive of procedures): Not Applicable
Data Reviewed
Review of Other/Old Records Reveals: Labs, Records, Radiology Studies and Discharge Summary
Source: patient and records
Update Note
Update Note:
Update, etiology not entirely clear since our second visit status post surgery in outside institution was seen by general surgery and gynecology recently on her visit, ultimately not thought to have cholecystitis or cuff dehiscence
Will get her comfortable here, hydrate analgesics antiemetics check CT scan and urine straight cath
Update 8:[address] reviewed reviewed with patient she is scheduled to have a gynecologic exam tomorrow to [facility] and I offered her analgesia tonight and then discharge to see [facility] tomorrow she states she prefers to be admitted to get her pain
under control I asked her about her goals of care she states she is she has to go forward with chemo although I do wonder if hospice would be an option with her
ED Attending Note
-
Portions of this chart may have been created with voice recognition software.� Occasional wrong word or��sound alike� substitutions may have occurred due to the inherent limitations of voice recognition software.
Discharge Plan
Departure
Patient Disposition: Admit
Date of Disposition: 09/07/25
Time of Disposition: 20:18
Admit to: Med/Surg
Presentation/result/management discussed w/ accepting MD/DO: Hospitalist
Patient with high blood pressure during this ER visit?: No
Condition: Fair
Discharge Problem:
Intractable abdominal pain
Prescriptions:
No Action
venlafaxine [Effexor XR] 37.5 mg Capsule,Extended Release 24hr
37.5 mg PO HS
amlodipine [Norvasc] 5 mg Tablet
5 mg PO DAILY
esomeprazole magnesium [Nexium] 40 mg Capsule,Delayed Release(Dr/Ec)
40 mg PO DAILY
ibuprofen [Advil] 200 mg Tablet
1,000 mg PO DAILYPRN PRN (Reason: mild pain)
docusate sodium [Colace] 100 mg Capsule
100 mg PO BIDPRN PRN (Reason: constipation)
oxycodone 5 mg tablet
5 mg PO Q8H PRN (Reason: pain) Qty: 10 0RF
cefdinir 300 mg capsule
300 mg PO BID 7 Days Qty: 14 0RF
metronidazole 500 mg tablet
500 mg PO Q8H 7 Days Qty: 21 0RF
venlafaxine [Effexor XR] 150 mg Capsule,Extended Release 24hr
75 mg PO HS Qty: 0 0RF
Referrals:
Jody Pate MD [Family Provider, Family Practice]
Interventions
Interventions:
*Risk Screen - Suicide Last Done: 09/07/25 16:44
*General Assessment Last Done: 09/07/25 16:44
*Neglect/Abuse Screening Last Done: 09/07/25 16:44
*ED- Fall Risk Assessment Last Done: 09/07/25 19:11
*ED COVID-19 Vaccine History Last Done: 09/07/25 19:10
*ED Influenza Vaccine History Last Done: 09/07/25 19:10
JK-Jujzjs-Mlmygcwrth Assessment Last Done: 09/07/25 17:33
Discharge Date and Time
Print Language: SLOVAK
[2025-09-07] MEDS: DILAUDID 1 MG IV ×3 (17:20→21:16)
[2025-09-07 17:22] LABS: ALT (SGPT) < 10 U/L (0-35); AST (SGOT) 23 U/L (14-36); Albumin 4.1 g/dl (3.5-5.0); Alkaline Phosphatase 66 U/L (38-126); Blood Urea Nitrogen 8 mg/dl (7-17); Calcium 9.6 mg/dl (8.4-10.2); Carbon Dioxide 26 mmol/L (22-30); Chloride 106 mmol/L (98-107); Estimated Creatinine Clearance 69 ml/min; Glucose 94 mg/dl (70-99); Lipase 32 U/L (23-300); Potassium 3.8 mmol/L (3.5-5.1); Sodium 140 mmol/L (135-145); Total Protein 6.4 g/dl (6.3-8.2); eGFR > 60.00
[2025-09-07 17:44] LABS: Urine Character Clear (Clear)
--- NOTE | 2025-09-07 19:16 | EDRN ---
patient dry heaving during VS check
--- NOTE | 2025-09-07 20:26 | HPS.HSE ---
Addendum entered and electronically signed by Napoleon Brooke DO 09/07/25 23:06:
Patient seen and examined independently. Agree with findings and plan as set forth by DEBORAH Price.
Patient is a 60y F with PMH significant for recently diagnosed endometrial carcinoma s/p hysterectomy and preparing for initiation of chemotherapy who presents to ED complaining of abdominal pain. Patient states that pain is primarily in the LLQ
/ pelvic region. She denies any flank pain, decreased urination, hematuria, etc. No fevers / chills. No N/V/D. Patient is being followed at [facility] for her malignancy.
CT scan done in the ED this evening shows significant interval progression of disease as well as L pelvic wall mass with obstruction of the L ureter.
Ass:
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
Left Ureteral Obstruction secondary to the above
Intractable Pain secondary to the above
Benign Hypertension
Anxiety / Depression
CLL
Plan:
Admit for further evaluation and treatment.
Continue efforts at supportive care / pain control.
Patient is not currently interested in Hospice / comfort care options.
Urology / IR consulted for L hydro / ureteral obstruction.
Consult [facility] for additional recommendations.
Original Note:
Family Physician
-
Family Physician: Jody Pate MD
Chief Complaint
-
severe abdominal pain
History of Present Illness
Patient is a 60-year-old female with past medical history significant for chronic lymphocytic leukemia, endometrial Cancer - stage IIIC1, hypertension, hyperlipidemia, depression/anxiety and GERD who presented to [facility] ED for evaluation of severe
abdominal pain. Patient reports that she has had abdominal pain for months and it has increased significantly over last 2 months. She states after the last 24 hours of pain she could no longer take it anymore. Patient reports dysuria, frequency and
urinary urgency. She notes that she thinks she had a fever at home in recent days but never checked it, she has had diarrhea for the last 24 hours and nausea intermittently for a while. She states she is currently being treated at [facility]
for endometrial cancer, in which she should start chemo soon, had port placed Thursday in right chest wall and has an appointment tomorrow scheduled. She denies any cough, shortness of breath, chest pain or vomiting.
Medical History
Past Medical History
Past Medical History: Reports Other
Additional Past Medical History:
chronic lymphocytic leukemia
endometrial Cancer - stage IIIC1
hypertension
hyperlipidemia
depression/anxiety
GERD
Past Surgical History: Reports Other
Additional Past Surgical History:
Arthroscopy - left - 2000
Arthroscopic bilateral shoulders rotator cuff surgery - 2003
Robotic LAVH - BSO - Appy LNS - Endometrial Cancer - Stage IIIC1 - + chemo - [facility] - [facility] - 07/2025
Social History
Tobacco: Former Smoker (recently quit 2 weeks ago, smoked 1 ppd for long time )
Alcohol: None
Drug: None
Personal: Single
Living: Alone
Employment: Disabled
Family History
Family History: Not pertinent
Allergies / Home Medications
Allergies reflects when Allergies were last updated in [employer].
Home Medications with original date entered in [employer]
Allergy/Medication List:
Allergies
Allergy/AdvReac Type Severity Reaction Status Date / Time
apple Allergy Unknown Unknown Verified 09/07/25 16:44
dog dander Allergy Unknown Unknown Verified 09/07/25 16:44
Home Medications
amlodipine 5 mg tablet (Norvasc) 5 mg PO DAILY Blood Pressure 08/11/25
esomeprazole magnesium 40 mg capsule,delayed release (Nexium) 40 mg PO DAILY Gastrointestinal Issue 08/11/25
ibuprofen 200 mg tablet (Advil) 1,000 mg PO DAILYPRN PRN mild pain 08/11/25
aripiprazole 2 mg tablet 2 mg PO DAILY 09/07/25
venlafaxine 150 mg capsule,extended release 24 hr 150 mg PO DAILY 09/07/25
venlafaxine 37.5 mg capsule,extended release 24 hr 37.5 mg PO DAILY 09/07/25
Review of Systems
-
History Source: Patient
Constitutional: Reports Fever (subjective ); Denies Chills
EENT: Denies Sore Throat
Respiratory: Denies Cough, Hemoptysis or Trouble Breathing
Cardiac: Denies Chest Pain, Diaphoresis, Palpitations or Syncope
Abdomen/GI: Reports Abdominal Pain, Nausea and Diarrhea; Denies Vomiting
: Reports Dysuria, Frequency and Urgency
Musculoskeletal: Denies Joint Pain
Skin: Denies Rash
Neurological: Denies Dizzy, Headache, Weakness or Numbness
Endocrine: Denies Polyuria or Polydipsia
Physical Exam
Vital Signs
Vital Signs
Temp Pulse Resp BP Pulse Ox
99.6 F 149 17 131/110 94
09/07/25 19:15 09/07/25 19:16 09/07/25 19:16 09/07/25 19:16 09/07/25 19:16
Physical Exam
General: Well Developed, Well Nourished, No Apparent Distress, Conversant and Pain
HEENT: NormoCephalic, Moist mucous membranes, PERRLA, Nose Appears Normal and Ears Appear Normal
Respiratory: Clear and Non Labored Respirations
Cardiac: S1/S2 and Regular Rhythm; No Murmur or Peripheral Edema
GI: Soft, Non Distended, Normal Bowel Sounds and Tender
Musculoskeletal: No Clubbing, No Cyanosis and No Edema
Skin: Warm and IV/Catheter Site
Neuro: Awake and AO x 3
Psych: Calm and Intact Judgment/Insight
Laboratory Results
-
09/07/25 16:55
09/07/25 16:55
Laboratory Results
Total Bilirubin 1.7 mg/dl (0.2-1.3) H 09/07/25 16:55
AST 23 U/L (14-36) 09/07/25 16:55
ALT < 10 U/L (0-35) 09/07/25 16:55
Alkaline Phosphatase 66 U/L (38-126) 09/07/25 16:55
Lipase 32 U/L (23-300) 09/07/25 16:55
Data Reviewed
-
CT Scan: Report Reviewed by me (Abd/Pel: Findings highly suspicious for progressive aggressive neoplastic process, especially if reported recent hysterectomy was for neoplastic reason. Left lateral pelvic sidewall mass likely contributing to
compromise of the distal left ureter with left ureteral obstruction. Ascites with perito)
Lab Data: Labs Reviewed by me (WBC 14.3, hgb 9.9, hct 31.5, neut 83.6, )
Impression/Plan
-
IMPRESSION/PLAN:
#severe intractable abdominal pain 2/2 complicated UTI vs. urinary retention vs endometrial cancer metastasis
#Left lateral pelvic sidewall mass likely contributing to compromise of the distal left ureter with left ureteral obstruction
#peritoneal carcinomatosis
Patient with ongoing abdominal pain for months, increasingly worse over past 2 months and severe last 24 hours, could not tolerate any longer
dysuria, frequency and urinary urgency present
WBC 14.3, hgb 9.9, hct 31.5, neut 83.6
UA: unremarkable
EKG: SINUS RHYTHM WITH MARKED SINUS ARRHYTHMIA
INCOMPLETE RIGHT BUNDLE BRANCH BLOCK
NONSPECIFIC ST ABNORMALITY
Abd/Pel CT: Findings highly suspicious for progressive aggressive neoplastic process, especially if reported recent hysterectomy was for neoplastic reason.
Left lateral pelvic sidewall mass likely contributing to compromise of the distal left ureter with left ureteral obstruction. Ascites with peritoneal nodules and masses, suspicious
for peritoneal carcinomatosis/implants. Left para-aortic adenopathy. Progressive pulmonary nodules, suggesting pulmonary metastatic disease.
- Admit to med/surg
- Consult Urology
- Consult IR for possible perc tube placement
- pain regimen
#endometrial Cancer - stage IIIC1
[place] [facility]
next appointment scheduled for 09/08/2025
#hypertension
- continue amlodipine
#depression/anxiety
- continue aripiprazole and venlafaxine
#GERD
- continue esomeprazole
#hyperlipidemia
#chronic lymphocytic leukemia
Code status: full code
DVT prophylaxis: SCDs
--- NOTE | 2025-09-07 23:45 | PTCARENOTE ---
Pt arrived to unit from ED via stretcher and ambulated to bed. A&Ox3. Pt complaining of 6/10 left lower abdominal pain. Refer to MAR. Pt admitting to fall in last 3 months. Explained usage of bed alarm and hospital policy. Pt refusing bed alarm at
this time. Plan of care ongoing.
[2025-09-07] MEDS: ROXICODONE 5 MG PO (23:46)
[2025-09-08 02:00] VITALS: BP 156/88
[2025-09-08] MEDS: DILAUDID 0.5 MG IV ×3 (02:27→16:02)
[2025-09-08 02:50] VITALS: BP 156/88
[2025-09-08 05:35] VITALS: BP 158/86
[2025-09-08] MEDS: ROXICODONE 5 MG PO ×2 (05:39→19:26)
[2025-09-08 05:41] LABS: Hematocrit 29.4 % (37.0-47.0); Hemoglobin 9.2 g/dL (12.0-16.0); Mean Corp Hgb Conc. 31.3 g/dL (33.0-37.0); Mean Corpuscular Volume 84.0 fL (81.0-99.0); Platelet Count 395 10^3/uL (130-400); Red Cell Dist. Width 13.1 % (11.5-14.5)
[2025-09-08 06:04] LABS: Blood Urea Nitrogen 9 mg/dl (7-17); Calcium 9.6 mg/dl (8.4-10.2); Carbon Dioxide 27 mmol/L (22-30); Chloride 103 mmol/L (98-107); Estimated Creatinine Clearance 61 ml/min; Glucose 91 mg/dl (70-99); Potassium 4.2 mmol/L (3.5-5.1); Sodium 136 mmol/L (135-145); eGFR > 60.00
[2025-09-08 06:57] LABS: Hepatitis C Antibody Negative (Negative)
[2025-09-08 07:48] VITALS: BP 167/84
--- NOTE | 2025-09-08 08:15 | CON.ONC ---
Documented by User: DEBORAH Hui 09/08/25 12:13
Consultation
-
Date Consultation Requested: 09/08/25
Date Consultation Performed: 09/08/25
Requesting Provider: Dr. Napoleon Brooke
Performing Provider: Dr. Giovanni Brush
Reason for Consultation: Endometrial cancer
Impression
Impression
Stage IIIC1 s/p robotic LAVH - BSO - Appy LNS July 2025, mediport placed and awaiting start of systemic therapy
CT 09/07 Left lateral pelvic sidewall mass likely contributing to compromise of the distal left ureter with left ureteral obstruction. Ascites with peritoneal nodules and masses, suspicious for peritoneal carcinomatosis/implants. Left para-aortic
adenopathy. Progressive pulmonary nodules, suggesting pulmonary metastatic disease.
Plan
Plan
pain management per primary service
may benefit from palliative care involvement for symptom management and advanced care planning
OP follow up with Dr. Perez at [facility] upon discharge for next steps in malignancy planning
Patient History
History of Present Illness
60yo F with who presented with severe abdominal pain. She reports chronic abdominal pain over the past 2 months, however, significantly increased yesterday prompting her to seek further evaluation in the ER. She also notes urinary frequency,
dysuria, and urgency. She reports subjective fevers but did not take her temperature. She had diarrhea and intermittent nausea over the past [address] ab/pelvis reviewed interval progression and development of multiple pulmonary
nodules, mild ascites, peritoneal nodular opacities measuring up to 3.2cm, perihepatic nodules, scattered peritoneal nodules, and left lateral pelvic sidewall, lobular mass measuring approximately 5.5 x 4 cm. Her labs showed leukocytosis with WBCC
14.3, normocytic anemia with Hgb 9.9g/dL, T bili 1.7 otherwise normal LFTs and renal function.
In brief, she had been experiencing post menopausal bleeding for the past 3 years that prompted further evaluation. She had an ultrasound 03/17/2025 that revealed thickened endometrial stripe. Her follow up pap smear showed endometrial adenocarcinoma
endometrioid type, favor grade 1, MLH1 and PMS2 was not expressed. P53 wild type. She saw Dr. Wang once on 07/24/2025 and was referred to Dr. Perez in the [facility]. She underwent robotic LAVH - BSO - Appy LNS July 2025
diagnostic for Stage IIIC1. She had her mediport placed and is awaiting initiation of systemic antineoplastic therapy.
She is using hydromorphone and oxycodone IR prn pain.
Afebrile, no hypoxia or hypotension
Past-Medical/Surgical History
PMH CLL, HLD, depression, anxiety, GERD, bells palsy, HTN
PSH b/l rotator cuff, left hip arthroscopy
Family father CAD, COPD. Mother HTN, osteoporosis. Sibling brain tumor age 55
Social 1PPD smoker. 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
Patient Medication
�Medication �Instructions �Recorded �Confirmed �Last Taken �Type
amlodipine 5 mg tablet (Norvasc) 5 mg PO DAILY Blood Pressure 08/11/25 09/07/25 08/11/25 History
esomeprazole magnesium 40 mg 40 mg PO DAILY Gastrointestinal 08/11/25 09/07/25 08/11/25 History
capsule,delayed release (Nexium) Issue
ibuprofen 200 mg tablet (Advil) 1,000 mg PO DAILYPRN PRN mild pain 08/11/25 09/07/25 08/11/25 History
aripiprazole 2 mg tablet 2 mg PO DAILY 09/07/25 09/07/25 Unknown History
venlafaxine 150 mg 150 mg PO DAILY 09/07/25 09/07/25 Unknown History
capsule,extended release 24 hr
venlafaxine 37.5 mg 37.5 mg PO DAILY 09/07/25 09/07/25 Unknown History
capsule,extended release 24 hr
Active Medications
Generic Name Dose Route Start Last Admin
Trade Name Freq PRN Reason Stop Dose Admin
Acetaminophen 650 mg 09/07/25 23:39
Acetaminophen 325 Mg Tablet PO 10/05/25 23:38
Q4HPRN PRN
mild pain/NEWBERRY/temp> 100.4F
Amlodipine Besylate 5 mg 09/08/25 08:00
Amlodipine 5 Mg Tablet PO 10/06/25 07:59
DAILY EMMA
Aripiprazole 2 mg 09/08/25 08:00
Aripiprazole 2 Mg Tablet PO 10/06/25 07:59
DAILY EMMA
Hydromorphone HCl 0.5 mg 09/07/25 23:39 09/08/25 02:27
Hydromorphone 0.5 Mg/0.5 Ml Syringe IV 09/21/25 23:38 0.5 mg
Q4HPRN PRN Administration
severe pain
Ondansetron HCl 4 mg 09/07/25 23:39
Ondansetron 4 Mg/2 Ml Vial IV 10/05/25 23:38
Q6HPRN PRN
nausea and vomiting
Oxycodone HCl 5 mg 09/07/25 23:39 09/08/25 05:39
Oxycodone 5 Mg Regular Release Tablet PO 09/21/25 23:38 5 mg
Q4HPRN PRN Administration
moderate pain
Pantoprazole Sodium 40 mg 09/08/25 08:00
Pantoprazole 40 Mg Delayed Release Tablet PO 10/06/25 07:59
DAILY EMMA
Sodium Chloride 0 flush 09/07/25 23:00
Sodium Chloride 0.9% (Flush) Syringe IV 10/05/25 22:59
PER PROTOCOL EMMA
Venlafaxine HCl 37.5 mg 09/08/25 08:00
Venlafaxine 37.5 Mg Extended Release Capsule PO 10/06/25 07:59
DAILY EMMA
Venlafaxine HCl 150 mg 09/08/25 08:00
Venlafaxine 150 Mg Extended Release Capsule PO 10/06/25 07:59
DAILY EMMA
Physical Exam
-
General: No Apparent Distress
HEENT: Negative Jaundice
Pulmonary: Other (unlabored)
GI: Soft
Extremities: Pulses Present
Neurology: Non Focal
Skin: Warm
Psych: Calm
Labs
Lab Results
WBC 13.9 10^3/uL (4.8-10.8) H 09/08/25 05:13
RBC 3.50 10^6/uL (4.20-5.40) L 09/08/25 05:13
Hgb 9.2 g/dL (12.0-16.0) L 09/08/25 05:13
Hct 29.4 % (37.0-47.0) L 09/08/25 05:13
MCV 84.0 fL (81.0-99.0) 09/08/25 05:13
MCH 26.3 pg (27.0-31.0) L 09/08/25 05:13
MCHC 31.3 g/dL (33.0-37.0) L 09/08/25 05:13
RDW 13.1 % (11.5-14.5) 09/08/25 05:13
Plt Count 395 10^3/uL (130-400) 09/08/25 05:13
MPV 10.5 fL (7.4-10.4) H 09/08/25 05:13
Abs Immat Gran (auto) 0.1 10^3/uL (0-0.05) H 09/07/25 16:55
Absolute Neuts (auto) 12.0 10^3/uL (1.4-6.5) H 09/07/25 16:55
Absolute Lymphs (auto) 1.3 10^3/uL (1.2-3.4) 09/07/25 16:55
Absolute Monos (auto) 0.8 10^3/uL (0.1-0.6) H 09/07/25 16:55
Absolute Eos (auto) 0.1 10^3/uL (0-0.7) 09/07/25 16:55
Absolute Basos (auto) 0.1 10^3/uL (0-0.2) 09/07/25 16:55
Immature Gran % 0.6 % (0-0.5) H 09/07/25 16:55
Neutrophils % 83.6 % (42.2-75.2) H 09/07/25 16:55
Lymphocytes % 8.9 % (20.5-51.1) L 09/07/25 16:55
Monocytes % 5.7 % (1.7-9.3) 09/07/25 16:55
Eosinophils % 0.9 % (0-6) 09/07/25 16:55
Basophils % 0.3 % (0-2) 09/07/25 16:55
Creatinine 0.9 mg/dL (0.6-1.0) 09/08/25 05:13
Vital Signs
Vital Signs
Temp Pulse Resp BP Pulse Ox
98.1 F 101 17 167/84 94
09/08/25 07:48 09/08/25 07:48 09/08/25 07:48 09/08/25 07:48 09/08/25 07:48

Documented by User: Giovanni Brush MD 09/08/25 13:35
Plan
Plan
pain management per primary service
may benefit from palliative care involvement for symptom management and advanced care planning
OP follow up with Dr. Perez at [facility] upon discharge for next steps in malignancy planning
Oncology Addendum:
Patient seen and evaluated and agree w/ CLAIMS ATTORNEY note and plan as outlined
-endometrial carcinoma - s/p primary surgical resection at [facility]
-f/u w/ sales enablement analyst/onc for management at [facility]
--- NOTE | 2025-09-08 08:24 | CON.MD ---
Consultation - Medical
-
see dictated note
pt with me endometrial ca- all care at [facility]
presents with diffuse abd pain- worse in LLQ
no urinary sx's/hematuria or coli
cr normal
ct shows extensive abd dz with mass partially obstructing left ureter- hydro is minimal
reviewed with pt and IR
do not believe her sx's at this juncture are due to left kidney obstruction- hydro is mild and cr normal
may need perc tube at some point- but it would be difficult at this point and unlikely to relieve pain
depending on treatment results- she may need one at some point- but would defer for now
Consultation
-
Date/Time Consultation Requested: 09/07/25 at 10pm
Date/Time Consultation Performed: 09/08/25 at 9am
Requesting Provider: ER
Performing Provider: Dr kinsey
Reason for Consultation: hydro
[2025-09-08] MEDS: EFFEXOR XR 150 MG PO (08:26)
[2025-09-08] MEDS: PROTONIX 40 MG PO (08:26)
[2025-09-08] MEDS: NORVASC 5 MG PO (08:26)
[2025-09-08] MEDS: EFFEXOR XR 37.5 MG PO (08:26)
[2025-09-08] MEDS: ABILIFY 2 MG PO (08:26)
--- NOTE | 2025-09-08 09:31 | W.PN.HOSP.TC ---
Today's Communication/Plan
-
Continue with pain regimen
Add bowel regimen
Await oncology input
DC plan
Assessment / Plan
Assessment / Plan
Intractable abdominal pain-generalized predominant on the left side. Not colicky in nature. Suspect secondary to her localized cancer disease which includes pelvic cancerous tissue, peritoneal carcinomatosis.
History of metastatic Endometrial Carcinoma s/p hysterectomy underweight chemotherapy. She is port in place now.
CT of the abdomen pelvis shows left Ureteral Obstruction secondary to the above but no evidence of stone. Not colicky in nature. Reviewed by urology who did not think abdominal pain is from her left ureteral obstruction. Creatinine is normal. No
recommendations for any interventions. UA negative. No fevers.
Start on pain regimen including oxycodone as needed and IV Dilaudid as needed and follow for response.
Start on bowel regimen.
Consult oncology regarding further options.
Leukocytosis suspect secondary to CLL. Chronic leukocytosis noted. Clinically not infected. Hold on antibiotics.
Benign Hypertension-continue the home medication
Anxiety / Depression-continue the home medication
DW urology this am about their recs
DC home once the pain is under control
Anticipated Discharge: 24 - 48 hours
Subjective/Interval History
-
Date of Service: September 08, 2025
Patient send noticed pain in the abdomen last Thursday and started to get more intense for a week. It is a generalized abdominal pain ,big deep breath hurts in the abdomen. Sneezing and coughing makes it worse in the abdomen. No nausea or vomiting.
No diarrhea constipation.
Continuous pain. Moderate to severe intensity. Pain keeps her awake at night. Not colicky in nature.
No fever or chills. No shortness of breath or chest pain.
She was here [facility] 3 weeks ago post hysterectomy for right-sided abdominal pain which was felt secondary to subcutaneous emphysema and was discharged home.
She had a hysterectomy last month and was diagnosed to have endometrial cancer. She did not know she had a metastatic disease.
History of CLL follows with local oncologist.
Had some dysuria but no retention symptoms.
Objective Data
-
Labs:
Laboratory Results
09/08/25
05:13
WBC 13.9 H
Hgb 9.2 L
Hct 29.4 L
Plt Count 395
Sodium 136
Potassium 4.2
Chloride 103
Carbon Dioxide 27
BUN 9
Creatinine 0.9
Glucose 91
Calcium 9.6
Vital Signs:
Vital Signs
Temp Pulse Resp BP Pulse Ox
98.1 F 101 17 167/84 94
09/08/25 07:48 09/08/25 08:26 09/08/25 07:48 09/08/25 08:26 09/08/25 07:48
Physical Exam
-
General: No Apparent Distress
Respiratory: Clear to Auscultation and Non Labored Respirations; Negative Accessory Resp Muscle Use
Cardiac: Regular Rhythm and S1/S2
GI: Soft, Nondistended, Normal Bowel Sounds and Tender (Especially in the left side of the abdomen but no rebound guarding or rigidity)
Neuro: AO x 3
Psych: Calm
Data Reviewed
-
CT Scan: Report Reviewed by me (CT abdomen pelvis)
Labs: Labs Reviewed by me
[2025-09-08] MEDS: ZOFRAN 4 MG IV (12:05)
[2025-09-08 13:47] VITALS: BMI 22.3
[2025-09-08 15:31] VITALS: BP 145/85
--- NOTE | 2025-09-08 15:34 | CM ---
Patient lives alone in a ranch style home with 1st floor set up, approximately 5 steps to enter. Patient has a hospital bed, but no other equipment. Patient drives and is (I) with ambulation and ADLS. She drives in the community.
PCP: Jody Pate
Pharmacy: [facility] on [address]
[2025-09-08] MEDS: COLACE 100 MG PO (19:26)
[2025-09-08] MEDS: TYLENOL 650 MG PO (21:23)
[2025-09-08 23:00] VITALS: BP 153/79
[2025-09-09] MEDS: DILAUDID 0.5 MG IV ×3 (00:50→13:10)
[2025-09-09] MEDS: ROXICODONE 5 MG PO ×2 (04:06→11:33)
[2025-09-09 07:00] VITALS: BP 156/94
[2025-09-09 07:47] LABS: Hematocrit 27.2 % (37.0-47.0); Hemoglobin 8.8 g/dL (12.0-16.0); Mean Corp Hgb Conc. 32.4 g/dL (33.0-37.0); Mean Corpuscular Volume 81.4 fL (81.0-99.0); Platelet Count 366 10^3/uL (130-400); Red Cell Dist. Width 13.1 % (11.5-14.5)
[2025-09-09] MEDS: PROTONIX 40 MG PO (08:07)
[2025-09-09] MEDS: EFFEXOR XR 150 MG PO (08:07)
[2025-09-09] MEDS: MIRALAX 17 GRAMS PO (08:07)
[2025-09-09] MEDS: ZOFRAN 4 MG IV (08:08)
[2025-09-09] MEDS: COLACE 100 MG PO ×2 (08:08→19:58)
[2025-09-09] MEDS: NORVASC 5 MG PO (08:08)
[2025-09-09] MEDS: ABILIFY 2 MG PO (08:08)
[2025-09-09] MEDS: EFFEXOR XR 37.5 MG PO (08:08)
[2025-09-09] MEDS: FLUSH (NSS) 2 FLUSH IV (08:10)
--- NOTE | 2025-09-09 11:08 | W.PN.URO.CBU ---
Today's Communication / Plan
-
no gu interventio
Assessment / Plan
-
mild left hydro but i do n ot believe is source of abd pain wpould observe
Diagnosis
-
Date of Service: September 09, 2025
-
Patient Diagnosis:
endometrial cancer wiy-[th abd pain but mild left hydro from extrinsic compression nl creratinine
Post Op Day:
Subjective
-
pain less today
Objective
-
Vital Signs
Temp Pulse Resp BP Pulse Ox
98.2 F 95 17 156/94 95
09/09/25 07:00 09/09/25 08:08 09/09/25 07:00 09/09/25 08:08 09/09/25 07:00
Intake and Output
09/08/25 09/09/25 09/10/25
06:59 06:59 05:59
Intake Total 480 / 480
Balance 480 / 480
Intake:
Oral fluids 480 / 480
Other:
Number of approximated MODERATE 2
amounts of urine
Number of approximated LARGE 1
amounts of urine
Laboratory Results
09/09/25 06:27
09/08/25 05:13
Review of Systems
-
Abdomen/GI: Abdominal Pain
Physical Exam
-
General - well developed, well nourished, no acute distress
Chest - clear bilaterally
Abdomen - soft, non-tender, positive bowel sounds, no CVAT, no incisional pain or distention
Genitalia - normal
Rectal - normal
Skin - warm & dry with no rash
Neuro - AOx3, no motor deficits
Extremities - no clubbing, no cyanosis, no edema
Incision - clean, dry
Dressing - clean, dry, intact
Counseling
-
no gu changes
Care Review
Data Reviewed
Discussed with: Hospitalist
CT Scan: Image Pers Reviewed
--- NOTE | 2025-09-09 13:44 | W.PN.HOSP.TC ---
Addendum entered and electronically signed by Steve Love MD 09/19/25 16:40:
With weight loss of > 20% in 1 year and < 75% estimated needs > 1 month pt meets AND/ASPEN criteria for moderate protein calorie malnutrition of chronic illness.
Original Note:
Today's Communication/Plan
-
Follow pain control with increased dose of oxycodone and start discharge plan
Assessment / Plan
Assessment / Plan
Intractable abdominal pain-generalized predominant on the left side. Not colicky in nature. Suspect secondary to her localized cancer disease which includes pelvic cancerous tissue, peritoneal carcinomatosis.
History of metastatic Endometrial Carcinoma s/p hysterectomy underweight chemotherapy. She is port in place now.
CT of the abdomen pelvis shows left Ureteral Obstruction secondary to the above but no evidence of stone. Not colicky in nature. Reviewed by urology who did not think abdominal pain is from her left ureteral obstruction. Creatinine is normal. No
recommendations for any interventions. UA negative. No fevers.
cw pain regimen including oxycodone as needed ; increase the dose of oxycodone to 10 mg and if that precludes use of IV Dilaudid will discharge her home today .
Continue bowel regimen.
Appreciate oncology input-recommend outpatient follow-up for chemotherapy
Leukocytosis suspect secondary to CLL. Chronic leukocytosis noted. Clinically not infected. Hold on antibiotics.
Benign Hypertension-continue the home medication
Anxiety / Depression-continue the home medication
DC home once the pain is under control
Anticipated Discharge: Today
Subjective/Interval History
-
Date of Service: September 09, 2025
Ongoing pain but is seeing improvement with the pain medication.
Constipated.
No nausea vomiting. No fever chills.
Objective Data
-
Labs:
Laboratory Results
09/09/25
06:27
WBC 13.6 H
Hgb 8.8 L
Hct 27.2 L
Plt Count 366
Vital Signs:
Vital Signs
Temp Pulse Resp BP Pulse Ox
98.2 F 95 17 156/94 95
09/09/25 07:00 09/09/25 08:08 09/09/25 07:00 09/09/25 08:08 09/09/25 07:00
I&O
09/08/25 09/09/25 09/10/25
06:59 06:59 05:59
Intake Total 480 / 480
Balance 480 / 480
Physical Exam
-
General: Comfortable
Respiratory: Non Labored Respirations; Negative Accessory Resp Muscle Use
Cardiac: Regular Rhythm and S1/S2
GI: Soft, Nondistended, Normal Bowel Sounds and Tender (no rebound or guarding)
Neuro: AO x 3
Data Reviewed
-
Labs: Labs Reviewed by me
[2025-09-09 15:00] VITALS: BP 128/74
[2025-09-09] MEDS: ROXICODONE 10 MG PO ×2 (15:31→19:58)
--- NOTE | 2025-09-09 18:55 | PTCARENOTE ---
Pt verbalized she would like to trial oxi 10 mg overnight and leave tomorrow, made aware.
[2025-09-09 23:00] VITALS: BP 142/71
[2025-09-10] MEDS: ROXICODONE 10 MG PO ×3 (00:26→10:51)
[2025-09-10 07:00] VITALS: BP 145/83
[2025-09-10] MEDS: EFFEXOR XR 150 MG PO (07:54)
[2025-09-10] MEDS: PROTONIX 40 MG PO (07:54)
[2025-09-10] MEDS: NORVASC 5 MG PO (07:54)
[2025-09-10] MEDS: ABILIFY 2 MG PO (07:54)
[2025-09-10] MEDS: EFFEXOR XR 37.5 MG PO (07:54)
[2025-09-10] MEDS: MIRALAX PO (07:54)
[2025-09-10] MEDS: COLACE PO (07:55)
--- NOTE | 2025-09-10 11:26 | W.PN.URO.CBU ---
Today's Communication / Plan
-
ok for d/c
Assessment / Plan
-
mild left hydro but i do n ot believe is source of abd pain wpould observe
Diagnosis
-
Date of Service: September 10, 2025
-
Patient Diagnosis:
Post Op Day:
Patient Diagnosis:
endometrial cancer wiy-[th abd pain but mild left hydro from extrinsic compression nl creratinine
Post Op Day:
Subjective
-
asx
Objective
-
Vital Signs
Temp Pulse Resp BP Pulse Ox
98.2 F 82 17 145/83 94
09/10/25 07:00 09/10/25 07:54 09/10/25 07:00 09/10/25 07:54 09/10/25 10:01
Intake and Output
09/09/25 09/10/25 09/11/25
06:59 05:59 06:59
Intake Total 480 / 480 1140 / 1140
Balance 480 / 480 1140 / 1140
Intake:
Oral fluids 480 / 480 1140 / 1140
Other:
Number of approximated MODERATE 2 2
amounts of urine
Number of approximated LARGE 1
amounts of urine
Laboratory Results
09/09/25 06:27
09/08/25 05:13
Review of Systems
-
Abdomen/GI: Abdominal Pain
Neurological: No Symptoms
Physical Exam
-
General - well developed, well nourished, no acute distress
Chest - clear bilaterally
Abdomen - soft, non-tender, positive bowel sounds, no CVAT, no incisional pain or distention
Genitalia - normal
Rectal - normal
Skin - warm & dry with no rash
Neuro - AOx3, no motor deficits
Extremities - no clubbing, no cyanosis, no edema
Incision - clean, dry
Dressing - clean, dry, intact
Counseling
-
ok for d/c
Care Review
Data Reviewed
Discussed with: Hospitalist
--- NOTE | 2025-09-10 11:38 | W.DCSUMMARY ---
Discharge Summary
Discharge Data
Date of Admission: 09/07/25
Date of Discharge: 09/10/25
-
Pending Results: No
Hospital Course
Primary diagnosis:
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
Leukocytosis suspected reactive transfuse for CLL
Secondary diagnosis:
Benign hypertension
Anxiety/depression
History of CLL
Hospital course:
Patient with history of metastatic endometrial cancer recently had a hysterectomy. Has a port as well placed recently for chemotherapy. She presented with intractable abdominal pain. CT of the abdomen pelvis showed Left lateral pelvic sidewall
mass likely contributing to compromise of the distal left ureter with left ureteral obstruction. Ascites with peritoneal nodules and masses, suspicious for peritoneal carcinomatosis/implants. Left para-aortic adenopathy. Progressive pulmonary
nodules, suggesting pulmonary metastatic disease.
Her pain was felt secondary to her metastatic cancer. It is not colicky in nature. Creatinine was normal. Urology did not feel the pain was urological in nature nor any interventions warranted from the left distal ureteral compression/occlusion
which is causing mild left hydro. Was also seen by oncology who recommended her to return back to primary [employer] oncology at [facility] and start chemotherapy. She was initiated on pain regimen but was requiring higher dose of oral oxycodone
10 mg for control. Once the pain was under control she was discharged home.
He was elevation of white cells in 13 without any fluctuations. No fever chills. No other focal infectious symptoms other than abdominal pain. No intra-abdominal collections or abscess. Has a history of CLL. Unclear if this is reactive to
metastatic cancer with CLL. No indication for antibiotics.
Today she has not used any IV pain medication. Pain under control with oxycodone oral. Denies any fever or chills. Afebrile, pulse 82 blood pressure 145/83. Abdomen soft with tenderness in the left lower quadrant but no rebound guarding
rigidity. Chest was clear. Denies any dizziness.
Deemed medically stable for discharge home.
Consultants on board:
Urology-Sarkis Colin
Oncology-Giovanni Thomson
Portions of this chart may have been created with voice recognition software. Occasional wrong word or 'sound alike' substitutions may have occurred due to the inherent limitations of voice recognition software.
Discharge Plan
-
Patient Disposition: Home (Routine Discharge)
Discharge Diagnosis/Procedures: Intractable abdominal pain secondary to her localized endometrial cancer disease which includes pelvic cancerous tissue, peritoneal carcinomatosis.
Diet: Regular
Activity: As tolerated
Driving Restrictions: As prior to admission
Bathing Restrictions: None
Referrals:
Jody Pate MD [Family Provider, [facility]] - in less than 1 week
Prescriptions:
New
docusate sodium 100 mg Capsule
100 mg PO BID Qty: 60 0RF
polyethylene glycol 3350 17 gram Powder In Packet
17 g PO DAILY Qty: 30 0RF
acetaminophen 325 mg Tablet
650 mg PO Q4HPRN PRN (Reason: mild pain) Qty: 1 0RF
oxycodone 5 mg Tablet
10 mg PO Q6HPRN PRN (Reason: moderate pain) Qty: 28 0RF
Continued
amlodipine [Norvasc] 5 mg Tablet
5 mg PO DAILY
esomeprazole magnesium [Nexium] 40 mg Capsule,Delayed Release(Dr/Ec)
40 mg PO DAILY
ibuprofen [Advil] 200 mg Tablet
1,000 mg PO DAILYPRN PRN (Reason: mild pain)
venlafaxine 37.5 mg capsule,extended release 24hr
37.5 mg PO DAILY
venlafaxine 150 mg capsule,extended release 24hr
150 mg PO DAILY
aripiprazole 2 mg tablet
2 mg PO DAILY
Discharge Orders:
Discharge Patient (As Directed); Ordered 09/10/25
Ordered By: Steve Love
Discharge Date and Time
Print Language: LUXEMBOURGISH
[2025-09-10] MEDS: TYLENOL 650 MG PO (11:49)
--- NOTE | 2025-09-10 12:05 | CM ---
Patient will d/c home today
No CM needs identified at this time
[2025-09-10 12:17] VITALS: BP 145/88
--- NOTE | 2025-09-11 12:46 | PN.CDI ---
CDI
- -
CDI:
Physician Documentation Request
Admit Date: 09/07/25 22:17
Dear Doctor Ivan,
Please review the following and provide your response in the progress notes.
Clinical Indicators:
09/08 Registered Dietitian: ' Chart reviewed due to consult pt with weight loss... Pt reports a 80 lb weight loss in past 8 months.
Observed lunch tray bites consumed. Pt did not want a supplement at this time.
CBW: 138 lbs BMI 22.3 normal range (09/07), compared to UBW of 208 lbs pt with a 34% weight loss in < 1 year
With weight loss of > 20% in 1 year and < 75% estimated needs > 1 month pt meets AND/ASPEN criteria for moderate protein calorie malnutrition of chronic illness.
Encouraged small frequent meals as tolerated.'
Based on the above information and your assessment, which of the following most accurately represents the patient's nutritional status?
Moderate Protein Calorie Malnutrition
Other (please specify)
[place] Criteria ([employer] Hospitalist 2017)
2 or more criteria must be present for either
non severe or severe malnutrition
Note that the criteria differs related to the
presence of an acute or chronic illness
Chronic Illness
Energy Intake Non Severe: <75% for >1 month
Severe: <75% for >1 month
Weight Loss Non Severe: 5% over 1 month
7.5% over 3 months
10% over 6 months
20% over 1 year
Severe: >5% over 1 month
>7.5% over 3 months
>10% over 6 months
>20% over 1 year
Body Fat Non Severe: Mild Loss
Severe: Severe Loss
Muscle Mass Non Severe: Mild Loss
Severe: Severe Loss
Use of terms such as suspected, likely, concern for, or probable (associated with a specific diagnosis that is being evaluated, monitored, or treated as if it exists) are acceptable and can be coded in the inpatient setting, when documented at the
time of discharge.
Thank you,
Sera Kenny RN, BSN
CDI Specialist
[place] [employer]
Please use your independent medical judgment in providing your response.
== END 2025-09-10 12:17 | disposition home or self-care (01) | DRG 948 ==
LOC: 3 WEST ACU 22:17
PROVIDERS: Nurse Practitioner Family; ADMITTING PHYSICIAN Hospitalist; ATTENDING PHYSICIAN Internal Medicine; CONSULT PHYSICIAN Specialist; EMERGENCY PHYSICIAN Emergency Medicine; FAMILY PHYSICIAN Family Medicine; OTHER PHYSICIAN Internal Medicine Hematology & Oncology
DX: G89.3 Neoplasm related pain (acute) (chronic) (principal); C78.6 Secondary malignant neoplasm of retroperitoneum and peritoneum; C91.10 Chronic lymphocytic leukemia of B-cell type not having achieved remission; N13.1 Hydronephrosis with ureteral stricture, not elsewhere classified; Q62.39 Other obstructive defects of renal pelvis and ureter; E44.0 Moderate protein-calorie malnutrition; R18.8 Other ascites; C54.1 Malignant neoplasm of endometrium; I10 Essential (primary) hypertension; F32.A Depression, unspecified; F41.9 Anxiety disorder, unspecified; Z87.891 Personal history of nicotine dependence; K21.9 Gastro-esophageal reflux disease without esophagitis; E78.5 Hyperlipidemia, unspecified; Z60.2 Problems related to living alone; Z79.899 Other long term (current) drug therapy; Z68.22 Body mass index [BMI] 22.0-22.9, adult
CPT/HCPCS: 51798; 74177; 80048; 80053; 81003; 83690; 85025; 85027; 86803; 93005; 96374; 96376; 99285; 99406; Q9967